=== PATIENT | female | born 1955 | race Caucasian/White ===

== ENCOUNTER 2022-11-18 20:17 | Emergency (ER) | payer OTHER, MEDICARE ==
[~2022-11-18] VITALS: Ht 170.2 cm; Wt 93.0 kg
[2022-11-18] MEDS ORDERED: OMEPRAZOLE20 MG PO (20:45)
[2022-11-18] MEDS ORDERED: CLARITIN10 M1 PO (20:46)
== END 2022-11-18 22:15 | disposition home or self-care (01) ==
LOC: ED 20:17
DX: S93.491A Sprain of other ligament of right ankle, initial encounter (principal); E11.9 Type 2 diabetes mellitus without complications; W10.9XXA Fall (on) (from) unspecified stairs and steps, initial encounter; Z79.899 Other long term (current) drug therapy
CPT/HCPCS: 73610; 96374; 96375; 99283-25; A9270; J2405; J3010